=== PATIENT | female | born 1970 | race Caucasian/White ===

== ENCOUNTER 2019-01-14 21:23 | Emergency (ER) ==
[2019-01-14 22:08] LABS: APPEARANCE,URINE CLEAR; BILIRUBIN,URINE NEGATIVE (NEGATIVE); COLOR,URINE COLORLESS; GLUCOSE, URINE NEGATIVE (NEGATIVE); KETONES,URINE NEGATIVE (NEGATIVE); LEUKOCYTE ESTERASE,URINE NEGATIVE (NEGATIVE); NITRITE,URINE NEGATIVE (NEGATIVE); PROTEIN,URINE NEGATIVE (NEGATIVE); URINE SPECIFIC GRAVITY 1.002; UROBILINOGEN,URINE NEGATIVE mg/dL (<2.0)
--- NOTE | 2019-01-15 00:31 | EKG REPORT ---
SEVERITY:- ABNORMAL ECG - SINUS TACHYCARDIA LEFT ATRIAL ABNORMALITY : Confirmed by: Ana Morgan MD 15-Jan-2019 00:31:10
== END 2019-01-14 22:00 | disposition left against medical advice (07) ==
LOC: ER 21:23
DX: Z53.21 Procedure and treatment not carried out due to patient leaving prior to being seen by health care provider (principal)
CPT/HCPCS: 81001

== ENCOUNTER 2019-01-15 23:29 | Emergency (ER) ==
[2019-01-16 00:05] LABS: APPEARANCE,URINE CLEAR; BILIRUBIN,URINE NEGATIVE (NEGATIVE); COLOR,URINE COLORLESS; GLUCOSE, URINE NEGATIVE (NEGATIVE); KETONES,URINE NEGATIVE (NEGATIVE); LEUKOCYTE ESTERASE,URINE TRACE (NEGATIVE); NITRITE,URINE NEGATIVE (NEGATIVE); PROTEIN,URINE NEGATIVE (NEGATIVE); URINE SPECIFIC GRAVITY 1.002; UROBILINOGEN,URINE NEGATIVE mg/dL (<2.0)
== END 2019-01-16 01:00 | disposition left against medical advice (07) ==
LOC: ER 23:29
DX: Z53.21 Procedure and treatment not carried out due to patient leaving prior to being seen by health care provider (principal)
CPT/HCPCS: 81001; 81025

== ENCOUNTER 2019-02-09 16:01 | Emergency (ER) | payer SELFPAY ==
[2019-02-09] MEDS ORDERED: ASPIRIN 81 MG TABLET, CHEWABLE PO ONE (16:16)
[2019-02-09] MEDS ORDERED: ONDANSETRON HCL INJ/PF 4 MG/2 ML SDV IV ONE (16:17)
--- NOTE | 2019-02-09 16:18 | ER Document Report ---
ED Medical Screen (RME) - General Chief Complaint: Chest Pain Stated Complaint: CHEST PAIN Time Seen by Provider: 02/09/19 16:16 Information source: Patient Notes: Patient presents complaining of chest pain shortness of breath nausea and vomiting that started a few hours prior to arrival. Patient describes pain as a pressure. Patient reports a history of A. fib that was treated with cardiac ablation. Patient otherwise has a history of hypertension although is not on any medications at this time. I have greeted and performed a rapid initial assessment of this patient. A comprehensive ED assessment and evaluation of the patient, analysis of test results and completion of the medical decision making process will be conducted by additional ED providers. TRAVEL OUTSIDE OF THE [place] IN LAST 30 DAYS: No - Related Data Allergies/Adverse Reactions: pseudoephedrine [From Sudafed] Allergy (Verified 02/09/19 16:15) Sulfa (Sulfonamide Antibiotics) Allergy (Verified 02/09/19 16:15) Physical Exam - General General appearance: Alert, Anxious - Cardiovascular Rhythm: Tachycardia Heart sounds: S1 appreciated, S2 appreciated Course - Re-evaluation Re-evalutation: 02/09/19 16:18 eyelet operator advised the patient status, patient will be brought directly to bed 15
[2019-02-09] MEDS ORDERED: NORMAL SALINE 1000 ML 1,000 ML IV ONE (16:41)
[2019-02-09 16:45] LABS: ABSOLUTE LYMPHOCYTES (AUTO) 1.8 10^3/uL (0.5-4.7); ABSOLUTE MONOCYTES (AUTO) 0.6 10^3/uL (0.1-1.4); ABSOLUTE NEUT (AUTO) 5.8 10^3/uL (1.7-8.2); BASOPHILS % (AUTO) 0.5 % (0-2); EOSINOPHILS % (AUTO) 0.4 % (0-6); HEMATOCRIT 46.8 % (36.0-47.0); HEMOGLOBIN 15.6 g/dL (12.0-15.5); LYMPHOCYTES % (AUTO) 21.8 % (13-45); MEAN CORPUSCULAR HEMOGLOBIN 28.6 pg (27.0-33.4); MEAN CORPUSCULAR HGB CONC 33.3 g/dL (32.0-36.0); MEAN CORPUSCULAR VOLUME 86 fl (80-97); MONOCYTES % (AUTO) 7.7 % (3-13); PLATELET COUNT 234 10^3/uL (150-450); RED BLOOD COUNT 5.45 10^6/uL (3.72-5.28); RED CELL DISTRIBUTION WIDTH 14.6 % (11.5-14.0); SEGMENTED NEUTROPHILS % (AUTO) 69.6 % (42-78); TOTAL CELLS COUNTED % (AUTO) 100 %; WHITE BLOOD COUNT 8.3 10^3/uL (4.0-10.5)
[2019-02-09 16:50] LABS: INTERNATIONAL RATION (INR) 0.97; PROTHROMBIN TIME 12.9 SEC (11.4-15.4)
[2019-02-09 16:51] LABS: PARTIAL THROMBOPLASTIN TIME 26.8 SEC (23.5-35.8)
[2019-02-09 16:58] LABS: ALBUMIN 4.5 g/dL (3.5-5.0); ALKALINE PHOSPHATASE 105 U/L (38-126); ANION GAP 10 (5-19); ASPARTATE AMINO TRANSFERASE 29 U/L (14-36); BILIRUBIN,DIRECT 0.2 mg/dL (0.0-0.4); BILIRUBIN,TOTAL 0.4 mg/dL (0.2-1.3); BLOOD UREA NITROGEN 15 mg/dL (7-20); CALCIUM 10.5 mg/dL (8.4-10.2); CARBON DIOXIDE 22 mmol/L (22-30); CHLORIDE 108 mmol/L (98-107); GLUCOSE 97 mg/dL (75-110); POTASSIUM 4.8 mmol/L (3.6-5.0); TOTAL PROTEIN 7.8 g/dL (6.3-8.2)
[2019-02-09] MEDS ORDERED: LORAZEPAM 1 MG TABLET PO ONE (17:11)
--- NOTE | 2019-02-09 17:29 | ER Document Report ---
ED General - General Chief Complaint: Chest Pain Stated Complaint: CHEST PAIN Time Seen by Provider: 02/09/19 16:16 TRAVEL OUTSIDE OF THE [place] IN LAST 30 DAYS: No - HPI Notes: Patient is a 58-year-old female that presents to the emergency department for chief complaint of chest pain. Patient states while at work around 230 or 3 she started to have a heaviness in her chest that she describes as a squeezing sensation circumferentially. She reports associated palpitations, lightheadedness, perioral and bilateral hand paresthesias and nausea. She denied any vomiting or syncopal episode. She states she has had panic attacks in the past and this felt similar. Patient is tearful and states she has "a lot" of stressors in her life right now. She denies homicidal or suicidal ideations. She states she used to be on Prozac but has been off of it because of a move and change in primary care doctors. Patient states currently she is feeling better. She denies history of CAD and states she had a normal stress test a few years ago. Patient does have a history of atrial fibrillation but has not had recurrence since having cardiac ablation Past Medical History: Hypertension, anxiety, A. fib Past Surgical History: Cardiac ablation Social History: Daily tobacco, occasional marijuana. Denies alcohol use. Family History: Reviewed and noncontributory for presenting illness Allergies: Reviewed, see documented allergy list. REVIEW OF SYSTEMS: CONSTITUTIONAL : No fever No chills No diaphoresis No recent illness EENT: No vision changes No congestion No sore throat CARDIOVASCULAR: chest pain palpitations RESPIRATORY: shortness of breath No cough difficulty breathing GASTROINTESTINAL: No abdominal pain nausea No vomiting No diarrhea GENITOURINARY: No dysuria No hematuria No difficulty urinating MUSCULOSKELETAL: No back pain No leg pain No arm pain SKIN: No rashes No lesions LYMPHATIC: No swollen, enlarged glands. NEUROLOGICAL: lightheadedness No headache No weakness paresthesias PSYCHIATRIC: No anxiety No depression PHYSICAL EXAMINATION: Vital signs reviewed, nursing noted reviewed. GENERAL: Well-appearing, well-nourished and in no acute distress. HEAD: Atraumatic, normocephalic. EYES: Eyes appear normal, extraocular movements intact, sclera anicteric, conjunctiva are normal. ENT: nares patent, oropharynx clear without exudates. Moist mucous membranes. NECK: Normal range of motion, supple without lymphadenopathy LUNGS: Breath sounds clear to auscultation bilaterally and equal. No wheezes rales or rhonchi. HEART: Tachycardic rate and regular rhythm without murmurs ABDOMEN: Soft, nontender, normoactive bowel sounds. No rebound, guarding, or rigidity. No masses appreciated. EXTREMITIES: Nontender, good range of motion, no pitting or edema. NEUROLOGICAL: No focal neurological deficits. Moves all extremities spontaneously Motor and sensory grossly intact on exam. PSYCH: Tearful, anxious SKIN: Warm, Dry, normal turgor, no rashes or lesions noted on exposed skin - Related Data Allergies/Adverse Reactions: pseudoephedrine [From Sudafed] Allergy (Verified 02/09/19 16:15) Sulfa (Sulfonamide Antibiotics) Allergy (Verified 02/09/19 16:15) Home Medications: xnaproxen Past Medical History - General Information source: Patient - Social History Smoking Status: Current Every Day Smoker Chew tobacco use (# tins/day): No Frequency of alcohol use: Heavy Drug Abuse: Marijuana Family History: Reviewed & Not Pertinent Patient has suicidal ideation: No Patient has homicidal ideation: No Physical Exam - Vital signs Vitals: Temp Pulse Resp BP Pulse Ox 98.7 F 139 H 26 H 189/108 H 99 02/09/19 16:18 02/09/19 16:18 02/09/19 16:18 02/09/19 16:18 02/09/19 16:18 Course - Re-evaluation Re-evalutation: 02/09/19 17:28 Vitals reviewed. Nurse notes reviewed. Patient is tearful and appears very anxious. Her EKG shows tachycardia which is improving with IV fluids. Patient has a history of anxiety and panic attacks and clinically this is what I am suspicious for. She will be given Ativan for symptom medic management. Patient has received aspirin in triage for her complaint of chest pain. Her EKG does not show any ischemic changes and she has a negative troponin. She has a heart score of 3 putting her at low risk for major adverse cardiac event. Currently I am not clinically suspicious for ACS. Patient also is low risk for pulmonary embolism with no known risk factors. Laboratory 02/09/19 02/09/19 02/09/19 16:23 16:23 16:23 WBC 8.3 RBC 5.45 H Hgb 15.6 H Hct 46.8 MCV 86 MCH 28.6 MCHC 33.3 RDW 14.6 H Plt Count 234 Lymph % (Auto) 21.8 Gilliam % (Auto) 7.7 Eos % (Auto) 0.4 Baso % (Auto) 0.5 Absolute Neuts (auto) 5.8 Absolute Lymphs (auto) 1.8 Absolute Monos (auto) 0.6 Absolute Eos (auto) 0.0 Absolute Basos (auto) 0.0 Seg Neutrophils % 69.6 PT 12.9 INR 0.97 APTT 26.8 Sodium 140.4 Potassium 4.8 Chloride 108 H Carbon Dioxide 22 Anion Gap 10 BUN 15 Creatinine 0.65 Est GFR ( Amer) > 60 Est GFR (MDRD) Non-Af > 60 Glucose 97 Calcium 10.5 H Magnesium 1.9 Total Bilirubin 0.4 Direct Bilirubin 0.2 Neonat Total Bilirubin Not Reportable Neonat Direct Bilirubin Not Reportable Neonat Indirect Bili Not Reportable AST 29 ALT 21 Alkaline Phosphatase 105 Troponin I Total Protein 7.8 Albumin 4.5 TSH 02/09/19 02/09/19 16:23 16:23 WBC RBC Hgb Hct MCV MCH MCHC RDW Plt Count Lymph % (Auto) Gilliam % (Auto) Eos % (Auto) Baso % (Auto) Absolute Neuts (auto) Absolute Lymphs (auto) Absolute Monos (auto) Absolute Eos (auto) Absolute Basos (auto) Seg Neutrophils % PT INR APTT Sodium Potassium Chloride Carbon Dioxide Anion Gap BUN Creatinine Est GFR ( Amer) Est GFR (MDRD) Non-Af Glucose Calcium Magnesium Total Bilirubin Direct Bilirubin Neonat Total Bilirubin Neonat Direct Bilirubin Neonat Indirect Bili AST ALT Alkaline Phosphatase Troponin I < 0.012 Total Protein Albumin TSH < 0.01 L 02/09/19 18:35 Patient reevaluated and states she is feeling better. Her heart rate has improved to 105. Patient's lab work is consistent with hyperthyroidism. She is not in acute thyroid storm. Patient's care was discussed with Torey Person NP regarding admission for her hyperthyroidism which he does not feel is currently appropriate. He recommends beta-blockers and methimazole with close outpatient follow-up. Patient will be started on metoprolol and methimazole. At this point I feel she is stable for discharge home with close outpatient follow-up. I did give her return precautions. Patient in agreement with plan of care and stable at discharge. Laboratory 02/09/19 02/09/19 02/09/19 16:23 16:23 16:23 WBC 8.3 RBC 5.45 H Hgb 15.6 H Hct 46.8 MCV 86 MCH 28.6 MCHC 33.3 RDW 14.6 H Plt Count 234 Lymph % (Auto) 21.8 Gilliam % (Auto) 7.7 Eos % (Auto) 0.4 Baso % (Auto) 0.5 Absolute Neuts (auto) 5.8 Absolute Lymphs (auto) 1.8 Absolute Monos (auto) 0.6 Absolute Eos (auto) 0.0 Absolute Basos (auto) 0.0 Seg Neutrophils % 69.6 PT 12.9 INR 0.97 APTT 26.8 Sodium 140.4 Potassium 4.8 Chloride 108 H Carbon Dioxide 22 Anion Gap 10 BUN 15 Creatinine 0.65 Est GFR ( Amer) > 60 Est GFR (MDRD) Non-Af > 60 Glucose 97 Calcium 10.5 H Magnesium 1.9 Total Bilirubin 0.4 Direct Bilirubin 0.2 Neonat Total Bilirubin Not Reportable Neonat Direct Bilirubin Not Reportable Neonat Indirect Bili Not Reportable AST 29 ALT 21 Alkaline Phosphatase 105 Troponin I Total Protein 7.8 Albumin 4.5 TSH Free T4 Free T3 pg/mL 02/09/19 02/09/19 02/09/19 16:23 16:23 16:23 WBC RBC Hgb Hct MCV MCH MCHC RDW Plt Count Lymph % (Auto) Gilliam % (Auto) Eos % (Auto) Baso % (Auto) Absolute Neuts (auto) Absolute Lymphs (auto) Absolute Monos (auto) Absolute Eos (auto) Absolute Basos (auto) Seg Neutrophils % PT INR APTT Sodium Potassium Chloride Carbon Dioxide Anion Gap BUN Creatinine Est GFR ( Amer) Est GFR (MDRD) Non-Af Glucose Calcium Magnesium Total Bilirubin Direct Bilirubin Neonat Total Bilirubin Neonat Direct Bilirubin Neonat Indirect Bili AST ALT Alkaline Phosphatase Troponin I < 0.012 Total Protein Albumin TSH < 0.01 L Free T4 5.16 H Free T3 pg/mL 17.30 H - Vital Signs Vital signs: Temp Pulse Resp BP Pulse Ox 98.7 F 139 H 26 H 189/108 H 99 02/09/19 16:18 02/09/19 16:18 02/09/19 16:18 02/09/19 16:18 02/09/19 16:23 - Laboratory Result Diagrams: 02/09/19 16:23 02/09/19 16:23 Laboratory results interpreted by me: 02/09/19 02/09/19 02/09/19 16:23 16:23 16:23 RBC 5.45 H Hgb 15.6 H RDW 14.6 H Chloride 108 H Calcium 10.5 H TSH < 0.01 L Free T4 Free T3 pg/mL 02/09/19 16:23 RBC Hgb RDW Chloride Calcium TSH Free T4 5.16 H Free T3 pg/mL 17.30 H - EKG Interpretation by Me Additional EKG results interpreted by me: 02/09/19 17:27 Interpreted by myself [id number]: Sinus tachycardia, rate 137, normal axis, no STEMI, no ectopy Discharge - Discharge Clinical Impression: Hyperthyroidism, Anxiety Chest pain Qualifiers: Chest pain type: unspecified Qualified Code(s): R07.9 - Chest pain, unspecified Condition: Stable Disposition: HOME, SELF-CARE Instructions: Chest Pain of Unclear Cause ([facility]), Hyperthyroidism ([facility]) Additional Instructions: Please return to the emergency department if you have any worsening, or concern of your symptoms. Please return to the emergency department if you develop chest pain, difficulty breathing, severe abdominal pain, or ongoing vomiting. Please follow-up with your primary care physician in 2-3 days and any other recommended physicians. If prescribed, take all medications as directed. If you have any questions or concerns do not hesitate to return the emergency department for evaluation. [] Prescriptions: Methimazole [Tapazole 5 mg Tablet] 5 mg PO TID #42 tablet Metoprolol Succinate [Toprol Xl 25 mg Tab.sr] 25 mg PO DAILY #30 tab.sr.24h Forms: Return to Work Referrals: [facility] [Provider Group] - Follow up as needed
--- NOTE | 2019-02-09 17:37 | RADIOLOGY REPORT (SQ) ---
EXAM DESCRIPTION: CHEST SINGLE VIEW COMPLETED DATE/TIME: 02/09/2019 5:20 pm REASON FOR STUDY: cp, sob COMPARISON: None. EXAM PARAMETERS: NUMBER OF VIEWS: One view. TECHNIQUE: Single frontal radiographic view of the chest acquired. RADIATION DOSE: NA LIMITATIONS: None. FINDINGS: LUNGS AND PLEURA: No opacities, masses or pneumothorax. No pleural effusion. MEDIASTINUM AND HILAR STRUCTURES: No masses. Contour normal. HEART AND VASCULAR STRUCTURES: Cardiomegaly. BONES: No acute findings. HARDWARE: None in the chest. OTHER: No other significant finding. IMPRESSION: Cardiomegaly without acute abnormality of the lungs in frontal projection. TECHNICAL DOCUMENTATION: JOB ID: [id number] [employer]- All Rights Reserved Reading location - IP/workstation name: [email or web address]
[2019-02-09 18:17] LABS: FREE T3 17.3 pg/mL (2.77-5.27); FREE T4 (FREE THYROXINE) 5.16 ng/dL (0.78-2.19)
[2019-02-09] MEDS ORDERED: METOPROLOL SUCCINATE 25 MG TAB.SR.24H PO ONE (18:32)
[2019-02-09] MEDS ORDERED: METHIMAZOLE 5 MG TABLET PO ONE (18:32)
[2019-02-09 20:11] VITALS: BP 138/58
--- NOTE | 2019-02-09 21:30 | EKG REPORT ---
SEVERITY:- ABNORMAL ECG - SINUS TACHYCARDIA VENTRICULAR PREMATURE COMPLEX LEFT VENTRICULAR HYPERTROPHY : Confirmed by: Ana Morgan MD 09-Feb-2019 21:29:54
== END 2019-02-09 20:11 | disposition home or self-care (01) ==
LOC: ER 16:01
DX: E05.90 Thyrotoxicosis, unspecified without thyrotoxic crisis or storm (principal); R07.9 Chest pain, unspecified; F41.9 Anxiety disorder, unspecified; R00.2 Palpitations; R42 Dizziness and giddiness; I10 Essential (primary) hypertension; F17.200 Nicotine dependence, unspecified, uncomplicated
CPT/HCPCS: 93005; 99285; 96361; 96374; 36415; 84439; 83735; 84443; 85025; 85610; 85730; 80053; 84484; 84481; 71045; 93010; J2405; J7030

== ENCOUNTER 2019-10-07 21:29 | Emergency (ER) | payer SELFPAY ==
[2019-10-07] MEDS ORDERED: METHYLPREDNISOLONE INJ 40 MG/1 ML SDV IV ONE (21:55)
[2019-10-07] MEDS ORDERED: CEFAZOLIN 1 GM/D5W RTU 2 GM/100 ML RTUPB IV ONE (22:08)
--- NOTE | 2019-10-07 22:15 | ER Document Report ---
Entered by VICTOR HUGO NG SCRIBE 10/07/19 [id number] Acting as scribe for:YEMI BRIONES DO ED Respiratory Problem - General Chief Complaint: COPD Exacerbation Stated Complaint: SHORTNESS OF BREATH Time Seen by Provider: 10/07/19 21:40 Mode of Arrival: Medic Information source: Patient, Emergency Med Personnel Notes: This 48 year old female patient with a history of COPD, HTN, A fib, and Grave's disease brought in by EMS presents to the ED today with complaints of worsening shortness of breath for the past x2 days. Patient also reports a cough with no specific wheeze. She reports that she moved here from [place] x2 months ago and that she is out of her thyroid medication and 1 of her inhalers. EMS administered 125 mg Solumedrol and x2 DuoNeb treatments during transport per ED nurse. Denies sick contacts, fever, or chest pain. TRAVEL OUTSIDE OF THE [place] IN LAST 30 DAYS: No - Related Data Allergies/Adverse Reactions: pseudoephedrine [From Sudafed] Allergy (Verified 10/07/19 21:48) Sulfa (Sulfonamide Antibiotics) Allergy (Verified 10/07/19 21:48) Past Medical History - General Information source: Patient - Social History Smoking Status: Current Every Day Smoker Cigarette use (# per day): Yes Chew tobacco use (# tins/day): No Smoking Education Provided: No Family History: Reviewed & Not Pertinent Patient has suicidal ideation: No Patient has homicidal ideation: No - Past Medical History Cardiac Medical History: Reports: Hx Atrial Fibrillation, Hx Hypertension Pulmonary Medical History: Reports: Hx COPD Endocrine Medical History: Reports: Hx Graves' Disease Past Surgical History: Reports: Hx Cardiac Surgery - ablasion, Hx Tubal Ligation Review of Systems - Review of Systems Constitutional: See HPI. denies: Fever EENT: No symptoms reported Cardiovascular: See HPI. denies: Chest pain Respiratory: See HPI, Cough, Short of breath. denies: Wheezing Gastrointestinal: No symptoms reported Genitourinary: No symptoms reported Female Genitourinary: No symptoms reported Musculoskeletal: No symptoms reported Skin: No symptoms reported Hematologic/Lymphatic: No symptoms reported Neurological/Psychological: No symptoms reported -: Yes All other systems reviewed and negative Physical Exam - Vital signs Vitals: Temp Pulse Resp BP Pulse Ox 98.0 F 105 H 20 124/69 96 10/07/19 21:48 10/07/19 21:48 10/07/19 21:48 10/07/19 21:48 10/07/19 21:48 - General General appearance: Alert, Other - Appears older than stated age In distress: None - HEENT Head: Normocephalic, Atraumatic Eyes: Normal Pupils: PERRL Mouth/Lips: Other - Poor dentition Neck: Supple. No: Lymphadenopathy - Respiratory Respiratory status: No respiratory distress Chest status: Nontender Breath sounds: Decreased air movement - Diminished breath sounds in all lung garcia, Wheezing - Faint expiratory wheezing Chest palpation: Normal - Cardiovascular Rhythm: Regular Heart sounds: Normal auscultation Murmur: No Friction rub: No Gallop: None auscultated - Abdominal Inspection: Normal Distension: No distension Bowel sounds: Normal Tenderness: Nontender - Abdomen soft Organomegaly: No organomegaly - Back Back: Normal, Nontender - Extremities General upper extremity: Normal inspection General lower extremity: Normal inspection. No: Edema - Neurological Neuro grossly intact: Yes Orientation: AAOx4 [place] Coma Scale Eye Opening: Spontaneous [place] Coma Scale Verbal: Oriented [place] Coma Scale Motor: Obeys Commands [place] Coma Scale Total: 15 Speech: Normal - Psychological Associated symptoms: Normal affect, Normal mood - Skin Skin Temperature: Warm Skin Moisture: Dry Skin Color: Normal Course - Re-evaluation Re-evalutation: 10/08/19 00:11 MDM 48 year old post menopausal female with known Graves disease and COPD and still smokes is here with generalized weakness. She has a nonproductive cough and no fever or covid exposure. Out of thyroid medicine and no steroids in about 6 months. - Vital Signs Vital signs: Temp Pulse Resp BP Pulse Ox 98.1 F 111 H 20 126/66 H 96 10/08/19 00:59 10/08/19 00:59 10/08/19 00:59 10/08/19 00:59 10/08/19 00:59 - Laboratory Result Diagrams: 10/07/19 22:56 10/07/19 22:56 Laboratory results interpreted by me: 10/07/19 10/07/19 10/07/19 22:56 22:56 22:56 RDW 15.1 H [place] % (Auto) 2.8 L Chloride 113 H Carbon Dioxide 19 L Creatinine 0.41 L Total Protein 6.0 L Albumin 3.4 L TSH < 0.01 L - Diagnostic Test Radiology reviewed: Image reviewed, Reports reviewed Discharge - Discharge Clinical Impression: COPD with exacerbation, Hyperthyroidism Hypertension Qualifiers: Hypertension type: unspecified Qualified Code(s): I10 - Essential (primary) hypertension Condition: Stable Disposition: HOME, SELF-CARE Instructions: Chronic Obstructive Lung Disease ([facility]), Stop Smoking ([facility]), Thyroid Hormone ([facility]) Additional Instructions: Rest, stop smoking. Take the medicine as directed. Please return here for chest pain, shortness of breath or other problems or other concerns. Prescriptions: Albuterol Sulfate [Albuterol Sulfate Hfa] 6.7 gm IH TID #1 hfa.aer.ad Methimazole 10 mg PO TID #90 tablet Prednisone 10 mg PO DAILY #21 tablet Forms: Smoking Cessation Education I personally performed the services described in the documentation, reviewed and edited the documentation which was dictated to the scribe in my presence, and it accurately records my words and actions.
--- NOTE | 2019-10-07 23:02 | RADIOLOGY REPORT (SQ) ---
EXAM DESCRIPTION: XR CHEST 1 VIEW COMPLETED DATE/TME: 10/07/2019 21:55 CLINICAL HISTORY: htn COMPARISON: 02/09/2019 FINDINGS: Single frontal view of the chest. Cardiomediastinal silhouette: Normal size and contour. Lungs: No consolidation, pneumothorax, or pleural effusion. Bones: No acute osseous abnormality. Upper abdomen: No abnormality identified. IMPRESSION: 1. No acute pulmonary process identified.
[2019-10-07 23:11] LABS: ABSOLUTE LYMPHOCYTES (AUTO) 1.1 10^3/uL (0.5-4.7); ABSOLUTE MONOCYTES (AUTO) 0.1 10^3/uL (0.1-1.4); TOTAL CELLS COUNTED % (AUTO) 100 %
[2019-10-07 23:18] LABS: ABSOLUTE BASOPHILS # (AUTO) 0.1 10^3/uL (0.0-0.2); BASOPHILS % (AUTO) 1.5 % (0-2); EOSINOPHILS % (AUTO) 0.7 % (0-6); HEMATOCRIT 39.6 % (36.0-47.0); HEMOGLOBIN 13.2 g/dL (12.0-15.5); MEAN CORPUSCULAR HEMOGLOBIN 28.5 pg (27.0-33.4); MEAN CORPUSCULAR HGB CONC 33.5 g/dL (32.0-36.0); MEAN CORPUSCULAR VOLUME 85 fl (80-97); MONOCYTES % (AUTO) 2.8 % (3-13); PLATELET COUNT 177 10^3/uL (150-450); RED BLOOD COUNT 4.65 10^6/uL (3.72-5.28); RED CELL DISTRIBUTION WIDTH 15.1 % (11.5-14.0); WHITE BLOOD COUNT 4.2 10^3/uL (4.0-10.5)
[2019-10-08 00:10] LABS: ALBUMIN 3.4 g/dL (3.5-5.0); ALKALINE PHOSPHATASE 91 U/L (38-126); ANION GAP 7 (5-19); ASPARTATE AMINO TRANSFERASE 29 U/L (14-36); BILIRUBIN,TOTAL 0.2 mg/dL (0.2-1.3); BLOOD UREA NITROGEN 9 mg/dL (7-20); CALCIUM 8.6 mg/dL (8.4-10.2); CARBON DIOXIDE 19 mmol/L (22-30); CHLORIDE 113 mmol/L (98-107); GLUCOSE 101 mg/dL (75-110); POTASSIUM 3.8 mmol/L (3.6-5.0)
--- NOTE | 2019-10-08 00:29 | EKG REPORT ---
SEVERITY:- BORDERLINE ECG - SINUS TACHYCARDIA BORDERLINE PROLONGED QT INTERVAL : Confirmed by: Efra Castro 08-Oct-2019 00:28:26
[2019-10-08] MEDS ORDERED: CEFAZOLIN 1 GM/D5W RTU 0 GM/0 ML RTUPB IV ONE (00:30)
[2019-10-08 01:03] VITALS: BP 126/66
== END 2019-10-08 00:59 | disposition home or self-care (01) ==
LOC: ER 21:29
DX: J44.1 Chronic obstructive pulmonary disease with (acute) exacerbation (principal); R53.1 Weakness; E05.90 Thyrotoxicosis, unspecified without thyrotoxic crisis or storm; I10 Essential (primary) hypertension; I48.91 Unspecified atrial fibrillation; F17.210 Nicotine dependence, cigarettes, uncomplicated; Z88.2 Allergy status to sulfonamides; Z98.51 Tubal ligation status
CPT/HCPCS: 93005; 99285; 96374; 36415; 83605; 83735; 84443; 85025; 80053; 84484; 71045; 93010; J2920